=== PATIENT | female | born 1955 | race Caucasian/White ===

== ENCOUNTER 2023-06-07 21:34 | Observation (INO) ==
[2023-06-07] MEDS ORDERED: Iodixanol (CONTRAST) 320 MG/ML 100 ML SDV IV ONE (22:30)
[2023-06-07 22:49] LABS: ABS Basophils 0.1 10^3/uL (0.0-0.1); ABS Eosinophils 0.3 10^3/uL (0.0-0.5); ABS Lymphocytes 2.5 10^3/uL (1.0-4.8); ABS Monocytes 0.9 10^3/uL (0.0-0.9); ABS Nucleated RBC 0.01 10^3/ul; Eosinophil % 2.7 %; Hematocrit 38.5 % (35-45); Hemoglobin 12.9 g/dL (11.5-14.3); Lymphocyte % 25.3 %; Mean Corpuscular Hemoglobin 30.8 pg (27-33); Mean Corpuscular Hgb Conc 33.7 g/dL (31-36); Mean Corpuscular Volume 91.4 fL (80-97); Mean Platelet Volume 8.9 fL (7.5-11.2); Nucleated Red Blood Cells % 0.1 %/100WBC (0.0-0.8); Platelet Count 267 10^3/uL (150-450); Red Blood Count 4.21 10^6/uL (3.63-4.92); Red Cell Distribution Width 13.9 % (12-17); White Blood Count 9.7 10^3/uL (3.8-11.8)
[2023-06-07 22:54] LABS: Activated Partial Thrombo Time 30.6 seconds (26.0-38.0); INR 1.05 (0.83-1.13)
[2023-06-07 23:08] LABS: Albumin 3.8 g/dL (3.2-5.2); Albumin/Globulin Ratio 1.9 (1-3); Calcium 8.6 mg/dL (8.6-10.3); Creatinine, Serum 0.73 mg/dL (0.51-0.95); Direct Bilirubin 0.1 mg/dL (0.03-0.18); HDL Cholesterol 41.5 mg/dL; Indirect Bilirubin 0.2 mg/dL (0.3-1.0); Potassium 3.5 mmol/L (3.5-5.0); Total Bilirubin 0.3 mg/dL (0.2-1.0); Total Protein 5.8 g/dL (6.4-8.9); eGFR CKD-EPI 91.2 (>60)
[2023-06-08 07:00] LABS: HDL Cholesterol 41.3 mg/dL
[2023-06-08 15:57] LABS: TSH Ultra Thyroid Stim Horm 2.02 mcIU/mL (0.34-5.60)
[2023-06-09 17:52] VITALS: BP 129/71
== END 2023-06-09 18:30 | disposition home or self-care (01) ==
LOC: EDHOLD 21:34 → ED 21:34 → SUATTDRO 23:30 → MEDTELE 06-08 02:31
PROVIDERS: ADMIT Internal Medicine; ATTEND Internal Medicine